=== PATIENT | female | born 1970 | race Two or more races ===

== ENCOUNTER 2024-02-23 00:50 | Inpatient (IN) | payer MEDICARE, OTHER ==
[~2024-02-23] VITALS: Ht 172.7 cm; Wt 59.0 kg
[2024-02-23 01:29] LABS: BASOPHILS % (AUTO) 0.7 % (0.0-2.0); EOSINOPHILS # (AUTO) 0.2 K/uL (0.0-0.7); EOSINOPHILS % (AUTO) 3.6 % (0.0-6.0); HEMATOCRIT 41 % (33-45); HEMOGLOBIN 13.7 g/dL (11.5-14.8); LYMPHOCYTES # (AUTO) 1.6 K/uL (0.8-4.8); MEAN CORPUSCULAR HEMOGLOBIN 31 PG (26.0-33.0); MEAN CORPUSCULAR HGB CONC 33 g/dl (31.0-36.0); MEAN CORPUSCULAR VOLUME 94 fL (82-100); MONOCYTES # (AUTO) 0.6 K/uL (0.1-1.30); MONOCYTES % (AUTO) 13.3 % (2.0-12.0); NEUTROPHILS # (AUTO) 1.9 K/uL (1.8-8.9); NEUTROPHILS % (AUTO) 44.4 % (43.0-81.0); PLATELET COUNT (AUTO) 271 K/uL (150-450); RED BLOOD CELL COUNT(AUTO) 4.37 MIL/uL (4.0-5.2); RED CELL DISTRIBUTION WIDTH 13.7 % (11.5-15.0); WHITE BLOOD COUNT (AUTO) 4.2 K/uL (4.3-11.0)
[2024-02-23 01:37] LABS: CALCIUM, SERUM 9.2 mg/dL (8.5-10.1); CARBON DIOXIDE 27 mmol/L (21-32); CHLORIDE 105 mmol/L (98-107); CREATININE 0.6 mg/dL (0.6-1.3); GLUCOSE 116 mg/dL (74-106); POTASSIUM 3.3 mmol/L (3.5-5.1); SODIUM SERUM 144 mmol/L (136-145); UREA NITROGEN, BLOOD 3 mg/dL (7-18)
[2024-02-23 01:49] LABS: ALANINE AMINOTRANSFERASE 22 U/L (12-78); ALBUMIN 3.9 g/dL (3.4-5.0); ALKALINE PHOSPHATASE 110 U/L (46-116); ASPARTATE AMINOTRANSFERASE 24 U/L (15-37); BILIRUBIN,TOTAL 0.2 mg/dL (0.2-1.0); LACTIC ACID 3.7 mmol/L (0.4-2.0); NT-PRO BNP 51 pg/mL (0-125); TOTAL PROTEIN, SERUM 6.8 g/dL (6.4-8.2)
[2024-02-23] MEDS ORDERED: LEVETIRACETAM (500MG) 500 MG/5 ML VIAL IV ONE (02:04)
[2024-02-23] MEDS: LEVETIRACETAM (500MG) 1,000 MG in IV NS 0.9% 90 ML IV STA (02:20)
[2024-02-23] MEDS ORDERED: POTASSIUM CHLORIDE 10 MEQ TABLET.SA ONE (02:23)
[2024-02-23] MEDS ORDERED: ONDANSETRON HCL/PF 4 MG/2 ML VIAL ONE (02:23)
[2024-02-23] MEDS: ONDANSETRON HCL/PF - ER 4 MG/2 ML VIAL IV ONE (02:26)
[2024-02-23] MEDS: IV NS 0.9% 1,000 ML IV ONE (02:26)
[2024-02-23] MEDS: POTASSIUM CHLORIDE 10 MEQ TABLET.SA PO ONE (02:26)
[2024-02-23] MEDS ORDERED: ONDANSETRON HCL/PF 4 MG/2 ML VIAL IVP PRN (02:30)
[2024-02-23] MEDS ORDERED: LORAZEPAM INJ 2 MG/ML VIAL IVP PRN (02:30)
[2024-02-23 04:15] VITALS: BP 103/69; TEMP 98.1; O2SAT 97
[2024-02-23] MEDS ORDERED: NITR100C6 PO (05:10)
[2024-02-23] MEDS ORDERED: BACL20TA PO ×2 (05:10)
[2024-02-23] MEDS ORDERED: GABA800T11 PO (05:10)
[2024-02-23] MEDS ORDERED: ESCI20TA PO (05:10)
[2024-02-23] MEDS ORDERED: AMINOPYRIDINE PO (05:10)
[2024-02-23] MEDS ORDERED: CLON1TAB PO (05:10)
[2024-02-23] MEDS: IV 1/2NS 1000 ML 1,000 ML IV SCH (05:15)
[2024-02-23 05:34] LABS: LACTIC ACID REFLEX 2.4 mmol/L (0.4-1.9)
[2024-02-23 08:00] VITALS: BP 94/68; TEMP 98.6; O2SAT 99
[2024-02-23] MEDS ORDERED: AMINOPYRIDINE PO SCH (09:00)
[2024-02-23] MEDS: BACLOFEN (10 MG) 10 MG TABLET PO SCH ×2 (09:11→22:39)
[2024-02-23] MEDS: PANTOPRAZOLE 40 MG VIAL IV SCH (09:11)
[2024-02-23] MEDS: ESCITALOPRAM OXALATE (10 MG) 10 MG TABLET PO SCH (09:16)
[2024-02-23] MEDS: LEVETIRACETAM (500MG) 500 MG in IV NS 0.9% 100 ML IV SCH (09:19)
[2024-02-23 12:00] VITALS: BP 104/70; TEMP 97.5; O2SAT 99
[2024-02-23 12:51] LABS: THYROID STIMULATING HORMONE 1.04 uIU/mL (0.358-3.74)
[2024-02-23 16:00] VITALS: BP 100/64; TEMP 97.5; O2SAT 99
[2024-02-23 18:00] VITALS: BP 100/64; TEMP 97.5; O2SAT 100
[2024-02-23] MEDS: GEMTESA 75 MG PO SCH (19:09)
[2024-02-23 20:00] VITALS: BP 97/64; TEMP 98.1; O2SAT 100
[2024-02-23] MEDS: AMINOPYRIDINE PO SCH (20:00)
[2024-02-23] MEDS: IV 1/2NS 1000 ML 1,000 ML IV PRN (22:14)
[2024-02-23] MEDS: GABAPENTIN 300 MG CAPSULE PO SCH (22:38)
[2024-02-23] MEDS: clonazePAM 1 MG TABLET PO SCH (22:38)
[2024-02-24] VITALS (8 sets, daily range): BP systolic 80–101; BP diastolic 52–68; TEMP 97.7–98.4; O2SAT 95–100
[2024-02-24] MEDS: IV NS 0.9% 1,000 ML IV ONE (05:23)
[2024-02-24 07:07] LABS: BASOPHILS % (AUTO) 1.1 % (0.0-2.0); EOSINOPHILS # (AUTO) 0.2 K/uL (0.0-0.7); EOSINOPHILS % (AUTO) 5.5 % (0.0-6.0); HEMATOCRIT 39 % (33-45); HEMOGLOBIN 12.6 g/dL (11.5-14.8); LYMPHOCYTES # (AUTO) 1.5 K/uL (0.8-4.8); LYMPHOCYTES % (AUTO) 34.9 % (20.0-44.0); MEAN CORPUSCULAR HEMOGLOBIN 31 PG (26.0-33.0); MEAN CORPUSCULAR HGB CONC 33 g/dl (31.0-36.0); MEAN CORPUSCULAR VOLUME 95 fL (82-100); MONOCYTES # (AUTO) 0.7 K/uL (0.1-1.30); MONOCYTES % (AUTO) 17.7 % (2.0-12.0); NEUTROPHILS # (AUTO) 1.7 K/uL (1.8-8.9); NEUTROPHILS % (AUTO) 40.8 % (43.0-81.0); PLATELET COUNT (AUTO) 226 K/uL (150-450); RED BLOOD CELL COUNT(AUTO) 4.04 MIL/uL (4.0-5.2); RED CELL DISTRIBUTION WIDTH 13.8 % (11.5-15.0); WHITE BLOOD COUNT (AUTO) 4.2 K/uL (4.3-11.0)
[2024-02-24 07:39] LABS: CALCIUM, SERUM 8.8 mg/dL (8.5-10.1); CREATININE 0.5 mg/dL (0.6-1.3); POTASSIUM 4.3 mmol/L (3.5-5.1)
[2024-02-24] MEDS ORDERED: HOME MED MISCELLANEOUS PO SCH (08:00)
[2024-02-24] MEDS: PANTOPRAZOLE 40 MG TABLET.DR PO SCH (08:52)
[2024-02-24] MEDS: AMINOPYRIDINE PO SCH (08:54)
[2024-02-24 09:27] LABS: ANISOCYTOSIS 1+; BASOPHILS % (MANUAL) 0 % (0.0-2.0); EOSINOPHILS % (MANUAL) 4 % (0-4); LYMPHOCYTES % (MANUAL) 40 % (16-48); MONOCYTES % (MANUAL) 13 % (0-11.0); NEUTROPHILS % (MANUAL) 43 (42-76); PLATELET ESTIMATE ADEQUATE
[2024-02-24 13:07] LABS: FOLIC ACID > 20.0 ng/mL (>3.0)
[2024-02-24] MEDS: IV NS 0.9% 500 ML IV ONE (13:47)
[2024-02-24] MEDS: BACLOFEN (10 MG) 10 MG TABLET PO SCH (17:54)
[2024-02-24] MEDS: ACETAMINOPHEN 325 MG TABLET PO PRN (22:02)
[2024-02-25] VITALS (7 sets, daily range): BP systolic 99–116; BP diastolic 57–81; TEMP 97.7–98.2; O2SAT 96–99
[2024-02-25 06:42] LABS: BASOPHILS % (AUTO) 1.3 % (0.0-2.0); EOSINOPHILS # (AUTO) 0.3 K/uL (0.0-0.7); EOSINOPHILS % (AUTO) 9.1 % (0.0-6.0); HEMATOCRIT 36 % (33-45); HEMOGLOBIN 11.9 g/dL (11.5-14.8); LYMPHOCYTES # (AUTO) 1.1 K/uL (0.8-4.8); LYMPHOCYTES % (AUTO) 31.7 % (20.0-44.0); MEAN CORPUSCULAR HEMOGLOBIN 31 PG (26.0-33.0); MEAN CORPUSCULAR HGB CONC 33 g/dl (31.0-36.0); MEAN CORPUSCULAR VOLUME 94 fL (82-100); MONOCYTES # (AUTO) 0.4 K/uL (0.1-1.30); MONOCYTES % (AUTO) 12.3 % (2.0-12.0); NEUTROPHILS # (AUTO) 1.5 K/uL (1.8-8.9); NEUTROPHILS % (AUTO) 45.6 % (43.0-81.0); PLATELET COUNT (AUTO) 206 K/uL (150-450); RED BLOOD CELL COUNT(AUTO) 3.83 MIL/uL (4.0-5.2); RED CELL DISTRIBUTION WIDTH 13.7 % (11.5-15.0); WHITE BLOOD COUNT (AUTO) 3.3 K/uL (4.3-11.0)
[2024-02-25 06:53] LABS: CALCIUM, SERUM 8.6 mg/dL (8.5-10.1); CREATININE 0.5 mg/dL (0.6-1.3); POTASSIUM 3.7 mmol/L (3.5-5.1)
[2024-02-25] MEDS ORDERED: LEVE500T9 PO (09:19)
[2024-02-25] MEDS: MAGNESIUM HYDROXIDE 30 ML UDC PO PRN (14:38)
[2024-02-25] MEDS: BISACODYL SUPP (10 MG) 10 MG/SUPP.RECT SUPP.RECT RC PRN (17:27)
[2024-02-25] MEDS: LEVETIRACETAM (250 MG) 250 MG TABLET PO SCH (21:10)
[2024-02-26] VITALS: BP 96/67; TEMP 98.1; O2SAT 99
[2024-02-26 06:00] VITALS: BP 112/64; TEMP 97.8; O2SAT 99
[2024-02-26 06:20] LABS: EOSINOPHILS # (AUTO) 0.3 K/uL (0.0-0.7); EOSINOPHILS % (AUTO) 7.4 % (0.0-6.0); HEMATOCRIT 36 % (33-45); HEMOGLOBIN 12.1 g/dL (11.5-14.8); LYMPHOCYTES # (AUTO) 0.8 K/uL (0.8-4.8); LYMPHOCYTES % (AUTO) 20.5 % (20.0-44.0); MEAN CORPUSCULAR HEMOGLOBIN 32 PG (26.0-33.0); MEAN CORPUSCULAR HGB CONC 34 g/dl (31.0-36.0); MEAN CORPUSCULAR VOLUME 95 fL (82-100); MONOCYTES # (AUTO) 0.6 K/uL (0.1-1.30); MONOCYTES % (AUTO) 14.6 % (2.0-12.0); NEUTROPHILS # (AUTO) 2.2 K/uL (1.8-8.9); NEUTROPHILS % (AUTO) 56.5 % (43.0-81.0); PLATELET COUNT (AUTO) 219 K/uL (150-450); RED CELL DISTRIBUTION WIDTH 13.7 % (11.5-15.0); WHITE BLOOD COUNT (AUTO) 3.9 K/uL (4.3-11.0)
[2024-02-26 07:06] LABS: CALCIUM, SERUM 8.7 mg/dL (8.5-10.1); CREATININE 0.4 mg/dL (0.6-1.3); POTASSIUM 3.8 mmol/L (3.5-5.1)
[2024-02-26 08:00] VITALS: BP 97/68; TEMP 98.1; O2SAT 99
[2024-02-26 08:10] LABS: METHYLMALONIC ACID 130 nmol/L (0-378)
[2024-02-26 12:00] VITALS: BP 102/78; TEMP 97.5; O2SAT 99
[2024-02-26 16:00] VITALS: BP 99/65; TEMP 97.9; O2SAT 99
[2024-02-27 19:07] LABS: VITAMIN B1 THIAMINE,WB 146.6 nmol/L (66.5-200.0)
== END 2024-02-26 18:45 | DRG 101 ==
LOC: EDBD 00:53 → ER 00:53 → TELE1 03:19 → MEDSG1 02-26 09:52
PROVIDERS: ADMIT Internal Medicine; ATTEND Internal Medicine
DX: R56.9 Unspecified convulsions (principal); E87.20 Acidosis, unspecified; G35 Multiple sclerosis; E87.6 Hypokalemia
CPT/HCPCS: 36415; 70450-TC; 71045-TC; 80048-TC; 80053-TC; 82248-TC; 82607-TC; 83605-TC; 83735-TC; 83880; 83921; 84425; 84443-TC; 84484-TC; 85025-TC; 87040-TC; 95819-TC; 97110-TC; 97112-TC; 97530-TC; A4223; G0378; G0480; J1953; J2405; J2470; J3490; J7030; J7060